=== PATIENT | female | born 1945 ===

== ENCOUNTER 2018-05-13 07:39 | Day surgery (SDC) | payer OTHER ==
[2018-05-13] MEDS ORDERED: Lactated Ringer's 500 ML IV ONE (08:00)
[2018-05-13 08:46] VITALS: TEMP 96.9
[2018-05-13] MEDS ORDERED: Propofol 10 mg/ml Inj (20 ML) ONE (09:38)
[2018-05-13 10:29] VITALS: BP 112/55; PULSE 81; RESP 12; O2SAT 100
== END 2018-05-13 10:48 | disposition home or self-care (01) ==
LOC: H.ENDO 07:39
PROVIDERS: ATTEND Internal Medicine Gastroenterology
DX: R10.32 Left lower quadrant pain (principal); R19.5 Other fecal abnormalities; K57.30 Diverticulosis of large intestine without perforation or abscess without bleeding; J45.909 Unspecified asthma, uncomplicated; E78.5 Hyperlipidemia, unspecified; I10 Essential (primary) hypertension; M54.12 Radiculopathy, cervical region
CPT/HCPCS: 45378; J2001; J2704; J7120